=== PATIENT | female | born 1995 | race American Indian/Alaskan Native ===

== ENCOUNTER 2018-08-30 11:53 | Emergency (ER) | payer SELFPAY ==
--- NOTE | 2018-08-30 12:13 | Event Note ---
ED Screening Note Date of service: 08/30/18 Time: 12:12 ED Screening Note: vaginal pain feels that her IUD is stuck in her vaginal wall. Can feel the plastic. Having heavy bleeding. This initial assessment/diagnostic orders/clinical plan/treatment(s) is/are subject to change based on patients health status, clinical progression and re- assessment by fellow clinical providers in the ED. Further treatment and workup at subsequent clinical providers discretion. Patient/guardian urged not to elope from the ED as their condition may be serious if not clinically assessed and managed. Initial orders include:
[2018-08-30 13:00] LABS: Bacteria,Urine 1+ /HPF (Negative); Bilirubin,Urine NEG (Negative); Blood,Urine MOD (Negative); Color,Urine Yellow (Yellow); Mucus,Urine FEW /HPF; Protein,Urine <15 mg/dL mg/dL (Negative); Urobilinogen,Urine < 2.0 mg/dL (<2.0)
[2018-08-30 13:03] LABS: HCG Qualitative,Urine Negative (Negative)
--- NOTE | 2018-08-30 14:59 | Emergency Department Report ---
ED Female HPI - General Chief complaint: Vaginal Bleeding Stated complaint: OTHER Time Seen by Provider: 08/30/18 12:10 Source: patient Mode of arrival: Ambulatory Limitations: No Limitations - History of Present Illness Initial comments: Patient is a 23-year-old [place] female who is presenting with some vaginal bleeding. Patient states she has suprapubic pain as well. Patient believes that her IUD which had been present for the last year to help control her abnormal menses has in her opinion migrated into the vagina. Patient states she can feel the IUD with her finger. Patient has not had a menses in the last year since she had the IUD placed therefore the bleeding that she is having today is very abnormal for her. Severity scale (0 -10): 6 Quality: cramping - Related Data Previous Rx's Medication Instructions Recorded Last Taken Type DOXYCYCLINE Hyclate [Vibramycin 100 mg PO Q12HR #14 capsule 08/30/18 Unknown Rx CAP] traMADol [Ultram] 50 mg PO Q6HR PRN #12 tablet 08/30/18 Unknown Rx Allergies Allergy/AdvReac Type Severity Reaction Status Date / Time amoxicillin Allergy Hives Verified 08/30/18 11:57 Penicillins Allergy Hives Verified 08/30/18 11:57 ED Review of Systems ROS: Stated complaint: OTHER Other details as noted in HPI Comment: All other systems reviewed and negative ED Past Medical Hx - Past Medical History Previous Medical History?: No - Surgical History Past Surgical History?: No - Social History Smoking Status: Never Smoker Substance Use Type: None - Medications Home Medications: Home Medications Medication Instructions Recorded Confirmed Last Taken Type DOXYCYCLINE Hyclate [Vibramycin 100 mg PO Q12HR #14 capsule 08/30/18 Unknown Rx CAP] traMADol [Ultram] 50 mg PO Q6HR PRN #12 tablet 08/30/18 Unknown Rx ED Physical Exam - General Limitations: No Limitations General appearance: alert, in no apparent distress - Head Head exam: Present: atraumatic, normocephalic - Eye Eye exam: Present: normal appearance - ENT ENT exam: Present: mucous membranes moist - Neck Neck exam: Present: normal inspection - Respiratory Respiratory exam: Present: normal lung sounds bilaterally. Absent: respiratory distress, wheezes, rales, rhonchi - Cardiovascular Cardiovascular Exam: Present: regular rate, normal rhythm. Absent: systolic murmur, diastolic murmur, rubs, gallop - GI/Abdominal GI/Abdominal exam: Present: soft, normal bowel sounds - External exam: Present: normal external exam Speculum exam: Present: vaginal bleeding, other (the tip of the IUD is protruding through the cervical os) Bi-manual exam: Present: other - Extremities Exam Extremities exam: Present: normal inspection - Back Exam Back exam: Present: normal inspection - Neurological Exam Neurological exam: Present: alert, oriented X3 - Psychiatric Psychiatric exam: Present: normal affect, normal mood - Skin Skin exam: Present: warm, dry, intact, normal color. Absent: rash ED Course Vital Signs 08/30/18 12:09 Temperature 98.4 F Pulse Rate 82 Respiratory 18 Rate Blood Pressure 133/88 O2 Sat by Pulse 98 Oximetry ED Medical Decision Making - Medical Decision Making The IUD was removed with ring forceps. Patient was given instructions on using alternative control. Patient given DINING ROOM HOST/HOSTESS for follow-up Critical care attestation.: If time is entered above; I have spent that time in minutes in the direct care of this critically ill patient, excluding procedure time. ED Disposition Clinical Impression: Encounter for IUD removal IUD complication Qualifiers: Device complication type: mechanical Mechanical complication type: displacement Encounter type: initial encounter Qualified Code(s): T83.32XA - Displacement of intrauterine contraceptive device, initial encounter Disposition: DC-01 TO HOME OR SELFCARE Is pt being admited?: No Does the pt Need Aspirin: No Condition: Stable Instructions: Dysfunctional Uterine Bleeding (ED) Referrals: SHAKIRA LOFTON MD [Staff Physician] - 3-5 Days Time of Disposition: 14:58
[2018-08-30 15:14] VITALS: BP 118/70
== END 2018-08-30 15:14 | disposition home or self-care (01) ==
LOC: ED 11:53
DX: T83.32XA Displacement of intrauterine contraceptive device, initial encounter (principal); Z88.0 Allergy status to penicillin; Z88.1 Allergy status to other antibiotic agents; Y92.89 Other specified places as the place of occurrence of the external cause
CPT/HCPCS: 81001; 81025